=== PATIENT | female | born 1970 | race American Indian/Alaskan Native ===

== ENCOUNTER 2017-01-31 17:17 | Inpatient (IN) | payer MEDICAID ==
[2017-01-31 17:37] VITALS: O2SAT 100; BMI 25.0
--- NOTE | 2017-01-31 18:11 | C.PDOC ---
History Of Present Illness 46 yr old female is a psych transfer for suicidal thoughts. Patient denies HI, hallucinations, weakness or numbness. Time Seen by Provider: 01/31/17 17:30 Chief Complaint (Nursing): Psychiatric Evaluation History Per: Patient History/Exam Limitations: no limitations Onset/Duration Of Symptoms: Days Past Medical History Reviewed: Historical Data, Nursing Documentation, Vital Signs Vital Signs: Last Vital Signs Temp 97.5 F L 01/31/17 17:30 Pulse 72 01/31/17 17:30 Resp 18 01/31/17 17:30 BP 108/74 01/31/17 17:30 Pulse Ox 100 01/31/17 18:12 - Medical History PMH: Bipolar Disorder, Depression, Schizophrenia, Sickle Cell Disease Family History: States: No Known Family Hx - Social History Hx Alcohol Use: Yes Hx Substance Use: Yes - Immunization History Hx Tetanus Toxoid Vaccination: Yes Hx Influenza Vaccination: Yes Hx Pneumococcal Vaccination: Yes Review Of Systems Except As Marked, All Systems Reviewed And Found Negative. Neurological: Negative for: Weakness, Numbness Psych: Positive for: Suicidal ideation, Other ((-) HI. Hallucinations.) Physical Exam - Physical Exam Appears: Non-toxic, No Acute Distress Skin: Warm, Dry, No Rash Head: Atraumatic, Normacephalic Oral Mucosa: Moist Chest: Symmetrical, No Tenderness Cardiovascular: Rhythm Regular, No Murmur Respiratory: Normal Breath Sounds, No Rales, No Rhonchi, No Wheezing Extremity: Normal ROM, No Swelling Neurological/Psych: Oriented x3, Normal Speech, Normal Motor ED Course And Treatment O2 Sat by Pulse Oximetry: 100 (RA ) Pulse Ox Interpretation: Normal Disposition - Disposition Disposition: HOSPITALIZED Disposition Time: 17:40 Condition: STABLE - Clinical Impression Clinical Impression: Bipolar disorder - Scribe Statement The provider has reviewed the documentation as recorded by the Ney Carmen Provider Attestation: All medical record entries made by the Ney were at my direction and personally dictated by me. I have reviewed the chart and agree that the record accurately reflects my personal performance of the history, physical exam, medical decision making, and the department course for this patient. I have also personally directed, reviewed, and agree with the discharge instructions and disposition.
--- NOTE | 2017-01-31 18:55 | PCM.BM ---
<ReynaAmaris Ryan - Last Filed: 01/31/17 18:52> Treatment Plan Problems - Problems identified on initial assessmt Depression Date Initiated: 01/31/17 Time Initiated: 18:12 Assessment reference: NA Status: Active Treatment assets and liabiliti Patient Assests: cooperative, motivated, ADL independent, physically healthy, negotiates basic needs, cognitively intact Patient Liabilities: live alone, financial problems, poor support system, substance abuse - Milieu Protocol Maintain good personal hygiene: daily Encourage regular showers, daily Remind patient to perform daily oral care, daily Assist patient to perform ADL's Conduct patient checks and document Observation sheet: Q15 minutes Maintain personal safety: every shift Educate patient to report safety concerns to staff, every shift Monitor environment for contraband/sharps Medication safety: Monitor for expected outcome, potential side effects: every shift, Assess barriers to learning: every shift, Assess readiness for medication education: every shift <Yolanda Laureano - Last Filed: 02/02/17 10:44> Family Contact Family involvement: Famliy/SO not involved - Outside Agency Agency 1 Care involvment: Following patient during stay, Information-sharing Agency contact name: [facility] Agency contact number: - Goals for Treatment Patient goals for treatment: "I want to go back to my partial care program." Discharge/Continuing Care - Education Needs Education Needs: Patient Medication, Patient Coping Skills, Patient Community resources - Discharge Discharge Criteria: Tolerates medication w/o severe side effects, Reduction of target symptoms Discharge to:: [facility] - Treatment Team Participation Discussed with Family/SO: No Was Patient/Family/SO present at Treatment Team Meeting: Yes <Mali Pace - Last Filed: 02/02/17 10:45> - Diagnosis (1) Schizoaffective disorder, bipolar type Status: Acute Interventions: 02/02/17 10:45 * Assess/adjust medications daily and /or as needed * See patient on an individual basis 7x/week to assess status of hallucinations * Discuss risks, benefits, side effects and alternatives of medications (2) Alcohol use disorder, moderate, dependence Status: Acute Interventions: 02/02/17 10:45 * Assess 7x/week regarding severity of withdrawal * Educate regarding risks, benefits, side effects and alternatives of medications * Use Motivational Interviewing for abstinence * Use CBT for relapse prevention * Medication management for withdrawal symptoms * Encourage medication assisted treatment
--- NOTE | 2017-02-01 10:07 | PCM.PSYCH ---
Initial Psychiatric Evaluation - Initial Psychiatric Evaluation Type of Admission: Voluntary Legal Status: Capacity Chief Complaint (in patient's own words): "I don't want to be here. Leave me alone." History of Present Illness and Precipitating Events: The pt is seen, chart reviewed, case discussed with staff The pt is uncooperative, highly agitated, and a poor historian. A 46 yo -[place] female is transferred from [facility] for suicidal thoughts. She reports currently feeling depressed and anxious. The patient reports that she has seen multiple psychiatrist starting at age 12. She was prescribed medications but did not adhere to treatment for unspecified reasons. The patient admits to using cocaine, marijuana, and alcohol. She would not specify how much or how often. The patients UA was positive for cocaine and marijuana. The patient would not allow for further history to be taken. Pt remained disorganized and internally preoccupied throughout the evaluation. She remained superficially cooperative but guarded about the details. She mentioned that she was wandering on the streets, police found her making suicidal statements and they escorted her to the hospital. She reports visual hallucinations and persecutory delusions. Social Hx: Single; lives in a boarding home in [place], [place]; unemployed and receives social security benefits. Past Psychiatric Hx: Bipolar Disorder, Depression, Schizophrenia, PTSD; denies heroin, pcp, lsd, xanax; admits to unspecified amounts of cocaine and drinking unspecified amounts of alcohol; smokes unspecified amounts of tobacco since 16 years old and unspecified amounts of marijuana. Family Hx: Mother had Sickle Cell Disease (now ) Family Psychiatric Hx: Mother had Schizophrenia (now ) Past Medical Hx: Sickle Cell Disease Current Medications: Active Medications Generic Name Dose Route Start Last Admin Trade Name Freq PRN Reason Stop Dose Admin Hydroxyzine HCl 25 mg 02/01/17 00:06 02/01/17 01:28 Atarax PO 25 mg Q6 PRN Administration Agitation Quetiapine Fumarate 100 mg 02/01/17 01:33 02/01/17 05:09 Seroquel PO Not Given HS THOMAS Past Psychiatric History - Past Psychiatric History Previous Treatment History: Inpatient Pertinent Medical Hx (Current Medical&Sleep Prob, Allergies): Allergies Allergy/AdvReac Type Severity Reaction Status Date / Time shellfish derived Allergy Verified 01/31/17 17:20 tomato Allergy Verified 01/31/17 17:21 No Known Home Med 01/31/17 Review of Systems - Review of Systems All systems: reviewed and no additional remarkable complaints except - Psychiatric Psychiatric: Anxiety, Hopelessness, Irritability, Mood Swings, Suicidal Ideation , Visual Hallucinations Mental Status Examination - Personal Presentation Personal Presentation: Looks stated age - Affect Affect: Constricted, Depressed - Motor Activity Motor Activity: Psychomotor Agitation - Reliability in Providing Information Reliability in Providing Information: Poor, due to alteration in thoughts, Poor , due to altered mood - Speech Speech: Disorganized - Mood Mood: Depressed, Anxious - Formal Thought Process Formal Thought Process: Hallucinations, Delusions, Paranoia, Loosening of associations, Flight of ideas - Hallucinations/Delusions Hallucinations: Visual Delusions: Persecution - Obsessions/Compulsions Obsessions: No Compulsions: No - Cognitive Functions Orientation: Person, Place, Situation, Time Sensorium: Alert Attention/Concentration: Attentive Abstract Thinking: [place] Estimate of Intelligence: Below average Judgement: Imparied, as evidence by: Poor judgement, Imparied, as evidence by: Lack of insight into illness - Risk Risk: Suicidal, Diminished functioning - Limitations Limitations: Living alone DSM 5 DX - DSM 5 DSM 5 Diagnosis: Schizoaffective disorder bipolar type R/O Bipolar disorder mixed severe with psychotic features Alcohol use disorder moderate Cocaine use disorder moderate - Recommended/Plan of Treatment Treatment Recommendations and Plan of Treatment: Schizoaffective disorder bipolar type R/O Bipolar disorder mixed severe with psychotic features CBT Psychoeducation Supportive therapy, group therapy, individual therapy Haldol 5 mg by mouth twice a day Neurontin 100 mg by mouth 3 times a day Seroquel 100 mg by mouth daily at bedtime Cocaine use disorder moderate Monitor signs and symptoms Use AL for abstinence Alcohol use disorder moderate CBT Psychoeducation Supportive therapy, individual therapy Use AL for abstinence - Smoking Cessation Smoking Cessation Initiated: No
[2017-02-01] MEDS ORDERED: Pantoprazole 40 mg Susp UD PO SCH (11:47)
[2017-02-01] MEDS: Pantoprazole 20 mg EC Tab PO SCH ×2 (14:07→18:00)
[2017-02-01] MEDS ORDERED: Petrolatum Oint Foilpak (5 gm) TOP PRN (17:21)
[2017-02-02] MEDS: Pantoprazole 20 mg EC Tab PO SCH ×2 (10:13→17:17)
--- NOTE | 2017-02-02 10:43 | PCM.PYCHPN ---
Psychiatric Progress Note - Psychiatric Progress Note Patient seen today, length of contact: 15 min Patient Chief Complaint: "I don't want to be here. Leave me alone." Problems Identified/Issues Discussed: Patient seen and evaluated, chart reviewed and discussed with the nurse. Patient appears more organized and less paranoid and less delusional. Patient remained isolated, confined and withdrawn. Patient still appears mildly paranoid and delusional. She reports improvement in her mood and improvement in the feelings of hopelessness and helplessness. She is taking medication and denies any side effects. She needs more time for stabilization. Supportive therapy and psychoeducation were given. Medication Change: Yes Medical Record Reviewed: Yes Mental Status Examination - Cognitive Function Orientation: Person, Place, Situation, Time Memory: Intact Attention: WNL Concentration: Poor Association: Loose Fund of Knowledge: WNL - Mood Mood: Depressed, Anxious - Affect Affect: Constricted, Depressed - Speech Speech: Soft - Formal Thought Process Formal Thought Process: Hallucinations, Delusions, Loosening of associations - Suicidal Ideation Suicidal Ideation: No - Homicidal Ideation Homicidal Ideation: No Goal/Treatment Plan - Goal/Treatment Plan Need for Continued Stay: Severe depression anxiety, Failed transitioning Progress Toward Problem(s) and Goals/Treatment Plan: Schizoaffective disorder bipolar type R/O Bipolar disorder mixed severe with psychotic features CBT Psychoeducation Supportive therapy, group therapy, individual therapy Haldol 5 mg by mouth twice a day Neurontin 100 mg by mouth 3 times a day Seroquel 100 mg by mouth daily at bedtime Cocaine use disorder moderate Monitor signs and symptoms Use [place] for abstinence Alcohol use disorder moderate CBT Psychoeducation Supportive therapy, individual therapy Use VA for abstinence - Smoking Cessation Smoking Cessation Initiated: No
[2017-02-03] MEDS: Pantoprazole 20 mg EC Tab PO SCH ×2 (10:24→17:56)
[2017-02-03 10:58] VITALS: BP 115/60; PULSE 80; RESP 19; TEMP 98.2
--- NOTE | 2017-02-03 13:49 | PCM.PYCHPN ---
Psychiatric Progress Note - Psychiatric Progress Note Patient seen today, length of contact: 15 min Patient Chief Complaint: "I am feeling much better." Problems Identified/Issues Discussed: Patient seen and evaluated, chart reviewed and discussed with the nurse. Today pt reports improvement in her paranoia ad mood. Patient appears more organized and reports improvement in her mood and improvement in the feelings of hopelessness and helplessness. She is taking medication and denies any side effects. She needs more time for stabilization. Supportive therapy and psychoeducation were given. Medication Change: Yes Medical Record Reviewed: Yes Mental Status Examination - Cognitive Function Orientation: Person, Place, Situation, Time Memory: Intact Attention: WNL Concentration: WNL Association: WNL Fund of Knowledge: Poor - Mood Mood: Depressed, Anxious - Affect Affect: Constricted, Depressed - Speech Speech: Soft - Formal Thought Process Formal Thought Process: Paranoia - Suicidal Ideation Suicidal Ideation: No - Homicidal Ideation Homicidal Ideation: No Goal/Treatment Plan - Goal/Treatment Plan Need for Continued Stay: Discharge may exacerbated symptoms, Severe functional impairment Progress Toward Problem(s) and Goals/Treatment Plan: Schizoaffective disorder bipolar type R/O Bipolar disorder mixed severe with psychotic features CBT Psychoeducation Supportive therapy, group therapy, individual therapy Haldol 5 mg by mouth twice a day Neurontin 100 mg by mouth 3 times a day Seroquel 100 mg by mouth daily at bedtime Cocaine use disorder moderate Monitor signs and symptoms Use SD for abstinence Alcohol use disorder moderate CBT Psychoeducation Supportive therapy, individual therapy Use SD for abstinence - Smoking Cessation Smoking Cessation Initiated: No
--- NOTE | 2017-02-04 09:49 | PCM.PYCHDC ---
Mental Status Examination - Mental Status Examination Orientation: Person, Place, Situation, Time Memory: Intact Mood: Neutral Affect: Constricted Speech: Soft Attention: WNL Concentration: WNL Association: WNL Fund of Knowledge: WNL Formal Thought Process: No Impairment Description of patient's judgement and insight: good, fair Psychotic Thoughts and Behaviors: denies any AVH Suicidal Ideation: No Current Homicidal Ideation?: No Discharge Summary - Discharge Note Reason for Hospitalization: A 46 yo -[place] female is transferred from [facility] for suicidal thoughts. She reports currently feeling depressed and anxious. The patient reports that she has seen multiple psychiatrist starting at age 12. She was prescribed medications but did not adhere to treatment for unspecified reasons. The patient admits to using cocaine, marijuana, and alcohol. She would not specify how much or how often. The patients UA was positive for cocaine and marijuana. The patient would not allow for further history to be taken. Pt remained disorganized and internally preoccupied throughout the evaluation. She remained superficially cooperative but guarded about the details. She mentioned that she was wandering on the streets, police found her making suicidal statements and they escorted her to the hospital. She reports visual hallucinations and persecutory delusions. Social Hx: Single; lives in a boarding home in [place], [place]; unemployed and receives social security benefits. Past Psychiatric Hx: Bipolar Disorder, Depression, Schizophrenia, PTSD; denies heroin, pcp, lsd, xanax; admits to unspecified amounts of cocaine and drinking unspecified amounts of alcohol; smokes unspecified amounts of tobacco since 16 years old and unspecified amounts of marijuana. Family Hx: Mother had Sickle Cell Disease (now ) Family Psychiatric Hx: Mother had Schizophrenia (now ) Past Medical Hx: Sickle Cell Disease Consultations:: List each consultation separately and include: 1. Reason for request. 2. Findings. 3. Follow-up Summary of Hospital Course include:: 1. Description of specific treatment plan utilized for patients during their course of treatmen. 2. Summarize the time- course for resolution of acute symptoms and/or regressed behaviors. 3. Describe issues identified and worked on during hospitalization. 4. Describe medication utilized. 5. Describe medical problems identified and treated. 6. Reassessment of suicide risk Summary of Hospital Course: During the course of her stay, patient (pt) started progressively improving and she no longer remained anxious, depressed and suicidal. Her mood was getting better and she started attending groups and meetings and started socializing. The doses of her medications were maximized and patient denied any feelings of hopelessness, helplessness, and worthlessness, denied any problem with the sleep or appetite, denied suicidal ideation or homicidal ideation. Pt denied any auditory or visual hallucinations. Patient reported improvement in her mood and tolerated these medications very well and denied any side effects. - Diagnosis (1) Schizoaffective disorder, bipolar type Status: Acute (2) Alcohol use disorder, moderate, dependence Status: Acute - Final Diagnosis (DSM 5) Condition upon Discharge: STABLE DSM 5: Bipolar disorder mixed severe with psychotic features Cocaine use disorder moderate Alcohol use disorder moderate Disposition: HOME/ ROUTINE Follow-up Treatment Plan: Education: Pt was educated and counseled about the risks and benefits of taking and not taking medications. Pt was educated and counseled about the risks of drinking and abusing drugs. Pt was educated and counseled to go to the ER or call 911 if pt develop suicidal ideation or homicidal ideation, worsening of symptoms or severe side effects of the meds. Prescriptions/Medication Reconciliation: Gabapentin [Neurontin] 300 mg PO BID 14 Days Haloperidol [Haldol] 5 mg PO BID 14 Days QUEtiapine [Seroquel] 100 mg PO HS #14 tab - Smoking Cessation Smoking Cessation Medication prescribed: No - Antipsychotic Medications Pt discharged on 2 or more routine antipsychotic medications: No
[2017-02-04] MEDS: Pantoprazole 20 mg EC Tab PO SCH (10:06)
== END 2017-02-04 11:05 | disposition home or self-care (01) | DRG 430 ==
LOC: C.ER 17:17 → C.5E 17:39
PROVIDERS: ADMIT Psychiatry & Neurology Psychiatry; ATTEND Psychiatry & Neurology Psychiatry
PROC: GZ56ZZZ Individual Psychotherapy, Supportive (ICD-10-PCS; principal; 2017-01-31)
DX: F31.64 Bipolar disorder, current episode mixed, severe, with psychotic features (principal); D57.1 Sickle-cell disease without crisis; R45.851 Suicidal ideations; F14.90 Cocaine use, unspecified, uncomplicated; F10.20 Alcohol dependence, uncomplicated; F43.10 Post-traumatic stress disorder, unspecified; F17.210 Nicotine dependence, cigarettes, uncomplicated